=== PATIENT | female | born 1945 | race Caucasian/White ===

== ENCOUNTER 2017-02-13 22:01 | Emergency (ER) | payer OTHER ==
--- NOTE | 2017-02-13 22:37 | ED CARDIAC/CP/PALPITATIONS ---
History of Present Illness General Chief Complaint: Dyspnea (COPD, CHF, Other) Stated Complaint: PT IS HAVING HEART PALPITATIONS Source: patient, family Exam Limitations: no limitations Vital Signs & Intake/Output Vital Signs & Intake/Output Vital Signs Date Time Temp Pulse Resp B/P B/P Pulse O2 O2 Flow FiO2 Mean Ox Delivery Rate 02/13 2359 98.1 68 20 140/87 98 Nasal 2.0L Cannula 02/13 2236 84 20 152/98 100 Nasal 2.0L Cannula Allergies Coded Allergies: MDX - Diphenhydramine (From BENADRYL ALLERGY) (HEART POUNDS 01/05/12) Triage Nurses Notes Reviewed? yes HPI: This is a 71-year-old female with history of coronary disease status post coronary stenting 2007 presents to the ER with chief complaint of sudden, abrupt onset of palpitations that started at 9:00 while the patient was watching TV. She states that she felt her heart pounding. Denies any chest pain. Denies any shortness of breath. No history of similar symptoms. Patient denies any change in her medications. No known history of atrial fibrillation or atrial flutter. She is a nonsmoker nondrinker. Patient presents to the ER with a heart rate in the 160s, irregular, A. fib. (TAYLA ESPINOZA MD) Past History Travel History Traveled to [place] past 21 day No Medical History Any Pertinent Medical History? see below for history Cardiovascular: CAD, CARDIAC STENT Surgical History Surgical History: non-contributory Psychosocial History What is your primary language Cape Verdean Tobacco Use: Never used ETOH Use: denies use Family History Hx Contributory? No (TAYLA ESPINOZA MD) Review of Systems Review of Systems Constitutional: Denies: chills, fever. EENTM: Reports: no symptoms. Respiratory: Denies: cough, short of breath. Cardiovascular: Reports: palpitations. Denies: chest pain, peripheral edema, syncope. GI: Reports: no symptoms. Genitourinary: Reports: no symptoms. Musculoskeletal: Reports: no symptoms. Skin: Reports: no symptoms. Neurological/Psychological: Reports: anxiety. Hematologic/Endocrine: Denies: bruising, bleeding, polyuria, polydipsia. Immunologic/Allergic: Reports: no symptoms. All Other Systems: Reviewed and Negative (TAYLA ESPINOZA MD) Physical Exam Physical Exam General Appearance: alert, awake, anxious, mild distress, thin Head: atraumatic, normal appearance Eyes: Bilateral: normal appearance, PERRL, EOMI. Ears, Nose, Throat: normal pharynx, normal ENT inspection, hearing grossly normal Neck: normal inspection, supple, full range of motion Respiratory: normal breath sounds, chest non-tender, no respiratory distress Cardiovascular: tachycardia, irregularly irregular Peripheral Pulses: 2+ radial (R), 2+ radial (L) Gastrointestinal: normal bowel sounds, soft, non-tender Neurologic/Psych: no motor/sensory deficits, awake, alert, oriented x 3 Skin: intact, normal color, warm/dry Core Measures ACS in differential dx? Yes ASA ordered for poss ACS? PENDING EVALUATION Severe Sepsis Present: No Septic Shock Present: No (OLGA GALICIA,TAYLA) Progress Differential Diagnosis: pulmonary embolism, unstable angina, a. FIB, A FLUTTER Plan of Care: Orders Procedure Date/time Status EKG 02/14 2236 Active Telemetry/Fountain Helper 02/13 2235 Active THYROID STIMULATING HORMONE 02/13 2235 Complete TROPONIN LEVEL 02/13 2235 Complete PARTIAL THROMBOPLASTIN TIME 02/13 2235 Complete PROTHROMBIN TIME 02/13 2235 Complete MAGNESIUM 02/13 2235 Complete FREE T4 02/13 2235 Complete COMPREHENSIVE METABOLIC PANEL 02/13 2235 Complete CBC WITHOUT DIFFERENTIAL 02/13 2235 Complete B-TYPE NATRIURETIC PEP (BNP) 02/13 2235 Complete EKG 02/14 2204 Active Laboratory Tests 02/13/17 2249: Anion Gap 14, Estimated GFR > 60, BUN/Creatinine Ratio 21.3, Glucose 108 H, Calcium 10.0, Magnesium 2.4 H, Total Bilirubin 0.7, AST 29, ALT 43, Alkaline Phosphatase 76, Troponin I < 0.01, Ham-E-Folecqrntcn Pept 241 H, Total Protein 7.8, Albumin 4.9, Globulin 2.9, Albumin/Globulin Ratio 1.7, TSH 7.050 H, Free T4 0.92, PT 10.5, INR 1.00, APTT 32, CBC w Diff NO MAN DIFF REQ, RBC 4.94, MCV 89.5, MCH 30.1, RDW 13.1, MPV 7.1 L, Gran % 53.8, Lymphocytes % 37.2, Monocytes % 5.9, Eosinophils % 2.2, Basophils % 0.9, Absolute Granulocytes 3.9, Absolute Lymphocytes 2.7, Absolute Monocytes 0.4, Absolute Eosinophils 0.2, Absolute Basophils 0.1, PUBS MCHC 33.6 Patient spontaneously converted to normal sinus rhythm upon initial evaluation. Labs, chest x-ray. (OLGA GALICIA,TAYLA) Diagnostic Imaging: Viewed by Me: Radiology Read. Discussed w/RAD: Radiology Read. CXR Impression: PATIENT: FLOR YOO PRESENT AGE: 71 PATIENT ACCOUNT NO: [id number] : 47 LOCATION: [facility] ORDERING PHYSICIAN: TAYLA ESPINOZA MD SERVICE DATE: 02/13/17 EXAM TYPE: RAD - XRY-PORTABLE CHEST XRAY EXAMINATION: XR PORTABLE CHEST CLINICAL INFORMATION: Dyspnea. COMPARISON: Chest x-ray 11/05/2013 TECHNIQUE: Portable frontal AP view of the chest was obtained. 10:45 PM FINDINGS: Hyperinflation of lungs. Lungs are clear. No pulmonary vascular congestion or pleural effusion. No pneumothorax. Cardiac and mediastinal contours are normal IMPRESSION: No acute abnormality the chest. DICTATED BY: SONG HANNAH MD DATE/TIME DICTATED:02/13/172311 SUPPORT WORKER :ADRIANNA DATE/TIME TRANSCRIBED:02/13/172311 CONFIDENTIAL, DO NOT COPY WITHOUT APPROPRIATE AUTHORIZATION. <Electronically signed in Other Vendor System> SIGNED BY: SONG HANNAH MD 02/13/172316 Initial ED EKG: AFIB (RVR) Rhythm Strip: normal sinus rhythm, atrial fibrillation Hand-Off Endorsed To: JAMES JASON MD Endorsed Time: 2320 Pending: labs (TAYLA ESPINOZA MD) Comments: H and has remained in sinus rhythm since they feel appropriate. Patient denies any chest pain or shortness of breath today. Patient will call Dr. Coon in the morning. At this point the patient is stable for discharge. (JAMES JASON MD) Departure Departure Condition: Stable Clinical Impression Primary Impression: Rapid atrial fibrillation Departure Forms: Customer Survey General Discharge Information (TAYLA ESPINOZA MD) Departure Disposition: HOME OR SELF CARE Referrals: BARBARA GALICIA,RAMONA BARDALES MD,JUAN Ward (PCP/Family) Additional Instructions: Follow-up with that decision. Return if symptoms return or for any concerns. (JAMES JASON MD) Critical Care Note Critical Care Note Critical Care Time: non-applicable (OLGA GALICIA,TAYLA)
[2017-02-13 22:58] LABS: ABSOLUTE BASOPHIL COUNT 0.1 /CUMM (0.0-0.2); ABSOLUTE EOSINOPHIL COUNT 0.2 /CUMM (0.0-0.7); ABSOLUTE GRANULOCYTE CT 3.9 /CUMM (1.4-6.5); ABSOLUTE LYMPH COUNT 2.7 /CUMM (1.2-3.4); ABSOLUTE MONOCYTE COUNT 0.4 /CUMM (0.10-0.60); BASOPHIL % 0.9 % (0.0-2.0); EOSINOPHIL % 2.2 % (0-5); GRANULOCYTE % 53.8 % (42.2-75.2); HEMATOCRIT 44.2 % (37-47); MEAN CORPUSCULAR HGB 30.1 PG (27.0-31.0); MEAN CORPUSCULAR HGB CONC 33.6 G/DL (33.0-37.0); MEAN CORPUSCULAR VOLUME 89.5 FL (81.0-99.0); MEAN PLATELET VOLUME 7.1 FL (7.4-10.4); PLATELET COUNT 251 /CUMM (130-400); RBC DISTRIBUTION WIDTH 13.1 % (11.5-14.5); RED BLOOD CELL CT 4.94 /CUMM (4.20-5.40); WHITE BLOOD CELL COUNT 7.3 /CUMM (4.8-10.8)
[2017-02-13 23:06] LABS: PT 10.5 SEC (9.4-12.5); PTT 32 SEC (25-37)
--- NOTE | 2017-02-13 23:17 | RADIOLOGY REPORT ---
EXAMINATION: XR PORTABLE CHEST CLINICAL INFORMATION: Dyspnea. COMPARISON: Chest x-ray 11/05/2013 TECHNIQUE: Portable frontal AP view of the chest was obtained. 10:45 PM FINDINGS: Hyperinflation of lungs. Lungs are clear. No pulmonary vascular congestion or pleural effusion. No pneumothorax. Cardiac and mediastinal contours are normal IMPRESSION: No acute abnormality the chest.
[2017-02-13 23:59] VITALS: BP 140/87
[2017-02-14] MEDS ORDERED: ASPIRIN EC81 M1 PO (21:24)
[2017-02-14] MEDS ORDERED: MELOXICAM7.5 M1 PO (21:24)
[2017-02-14] MEDS ORDERED: ATORVASTATIN CA10 M1 PO (21:25)
[2017-02-15] MEDS ORDERED: TOPROL XL25 M1 PO (15:16)
[2017-02-15] MEDS ORDERED: ELIQUIS5 M1 PO (15:16)
== END 2017-02-14 00:33 ==
LOC: ERH 22:01
PROVIDERS: Emergency Medicine
DX: I48.91 Unspecified atrial fibrillation (principal)
CPT/HCPCS: 93005; 93010

== ENCOUNTER 2017-02-14 20:31 | Observation (INO) | payer OTHER ==
[~2017-02-14] VITALS: Ht 165.1 cm; Wt 63.5 kg
--- NOTE | 2017-02-14 20:53 | NUR ---
PT TO TRIAGE WITH C/0 INTERMITTENT PALPITATIONS AND WEAKNESSxFEW DAYS. PT WAS SEEN HERE IN ER FOR SAME YESTERDAY AND WAS UNABLE TO FOLLOW UP WITH HER PCP TODAY. PT DENIES CHEST PAIN,DENIES SOB, DENIES ABD PAIN. VSS. HX OF AFIB,CAD.
--- NOTE | 2017-02-14 21:17 | NUR ---
PT IN ROOM 6
[2017-02-14] MEDS ORDERED: MELOXICAM7.5 M1 PO (21:24)
[2017-02-14] MEDS ORDERED: ASPIRIN EC81 M1 PO (21:24)
[2017-02-14] MEDS ORDERED: ATORVASTATIN CA10 M1 PO (21:25)
--- NOTE | 2017-02-14 21:33 | NUR ---
PT STATES SHE HAD ONE EPISODE OF PALPITATIONS TODAY-WHEN SHE WAS CLIMBING 13 STEPS INTO HOME. DENIES CP, SOB OR DIZZINESS WITH PALPITATIONS BUT THE SENSATION OF THE PALPITATIONS WAS UNCOMFORTABLE ENOUGH THAT SHE WANTED TO RETURN TO ED. PT ON MONITOR IN NSR WITHOUT ECTOPY. IN NO DISTRESS, PAIN OR RESP DISTRESS AT PERSENT
--- NOTE | 2017-02-14 21:34 | NUR ---
RYAN PATEL PA IN TO SEE PT
--- NOTE | 2017-02-14 22:00 | NUR ---
LAB DRAWN AND IV STARTED BY KLEVER AYALA
[2017-02-14 22:13] LABS: ABSOLUTE BASOPHIL COUNT 0.1 /CUMM (0.0-0.2); ABSOLUTE EOSINOPHIL COUNT 0.1 /CUMM (0.0-0.7); ABSOLUTE GRANULOCYTE CT 4.1 /CUMM (1.4-6.5); ABSOLUTE LYMPH COUNT 2.2 /CUMM (1.2-3.4); ABSOLUTE MONOCYTE COUNT 0.5 /CUMM (0.10-0.60); BASOPHIL % 1.1 % (0.0-2.0); EOSINOPHIL % 1.8 % (0-5); GRANULOCYTE % 58.6 % (42.2-75.2); HEMATOCRIT 41.3 % (37-47); MEAN CORPUSCULAR HGB 29.9 PG (27.0-31.0); MEAN CORPUSCULAR HGB CONC 33.3 G/DL (33.0-37.0); MEAN CORPUSCULAR VOLUME 89.8 FL (81.0-99.0); MEAN PLATELET VOLUME 7.1 FL (7.4-10.4); PLATELET COUNT 209 /CUMM (130-400); RBC DISTRIBUTION WIDTH 13.4 % (11.5-14.5)
--- NOTE | 2017-02-14 22:16 | ED CARDIAC/CP/PALPITATIONS ---
History of Present Illness General Chief Complaint: General Adult Stated Complaint: PT STOMACH PAIN ,AND HEART PALPITATION Source: patient, old records Exam Limitations: no limitations Vital Signs & Intake/Output Vital Signs & Intake/Output Vital Signs Date Time Temp Pulse Resp B/P B/P Pulse O2 O2 Flow FiO2 Mean Ox Delivery Rate 02/14 2247 96.6 61 18 150/90 97 Room Air 02/144 Room Air 02/14 2049 98.3 65 18 153/89 100 Room Air ED Intake and Output 02/15 0000 02/14 1200 Intake Total Output Total Balance Patient 140 lb Weight Weight Reported by Patient Measurement Method Allergies Coded Allergies: diphenhydramine (HEART POUNDS 02/14/17) Reconcile Medications Aspirin (Ecotrin*) 81 MG TABLET.DR 1 TAB PO DAILY HEART/BLOOD (Reported) Atorvastatin Calcium 10 MG TABLET 1 TAB PO DAILY CHOLESTEROL (Reported) Meloxicam 7.5 MG TABLET 1 TAB PO DAILY PAIN/INFLAMMATION (Reported) Triage Note: PT TO TRIAGE WITH C/0 INTERMITTENT PALPITATIONS AND WEAKNESSxFEW DAYS. PT WAS SEEN HERE IN ER FOR SAME YESTERDAY AND WAS UNABLE TO FOLLOW UP WITH HER PCP TODAY. PT DENIES CHEST PAIN,DENIES SOB, DENIES ABD PAIN. VSS. HX OF AFIB,CAD. Triage Nurses Notes Reviewed? yes Onset: Abrupt Duration: day(s): (2), constant, getting worse Timing: recent history Quality/Severity: moderate, severe HPI: 71-year-old female comes into emergency room with complaints of palpitations and increased weakness. Patient was seen here yesterday and diagnosed with intermittent A. fib. She was sent home follow-up. She reports that since yesterday she began getting these sensations in her chest that are worse with exertion. Patient does not describe it as pain. Denies any shortness of breath diaphoresis vomiting. Denies any fever or chills. Patient reports that there weakness is getting progressively worse. She feels very generally weak and tired. Patient started to get the symptoms again today in her chest. History of coronary disease with previous stents many years ago. Patient does not have a current senior backup administrator. She denies any chest pain or any pain anywhere on her body. (RYAN WARD) Past History Travel History Traveled to [place] past 21 day No Medical History Any Pertinent Medical History? see below for history Cardiovascular: AFIB, CAD Surgical History Surgical History: non-contributory Psychosocial History What is your primary language Taiwanese Tobacco Use: Quit >30 days ago Family History Hx Contributory? No (RYAN WARD) Review of Systems Review of Systems Constitutional: Reports: see HPI. EENTM: Reports: no symptoms. Respiratory: Reports: no symptoms. Cardiovascular: Reports: see HPI. GI: Reports: no symptoms. Genitourinary: Reports: no symptoms. Musculoskeletal: Reports: no symptoms. Skin: Reports: no symptoms. Neurological/Psychological: Reports: no symptoms. Hematologic/Endocrine: Reports: no symptoms. Immunologic/Allergic: Reports: no symptoms. All Other Systems: Reviewed and Negative (RYAN WARD) Physical Exam Physical Exam General Appearance: well developed/nourished, alert, awake Head: atraumatic, normal appearance Eyes: Bilateral: normal appearance. Ears, Nose, Throat: normal ENT inspection, hearing grossly normal Neck: normal inspection Respiratory: normal breath sounds, no respiratory distress Cardiovascular: regular rate/rhythm Gastrointestinal: soft, non-tender Back: normal inspection Extremities: normal range of motion, no edema Neurologic/Psych: awake, alert Skin: intact, normal color Core Measures ACS in differential dx? No Severe Sepsis Present: No Septic Shock Present: No (RYAN WARD) Progress Differential Diagnosis: AMI, aortic dissection, atrial fibrillation, cholecystitis, CHF/pulm edema, hyperkalemia, hypovolemia, hyperthyroid, pneumonia, pneumothorax, pulmonary embolism, PVCs/PACs, unstable angina, V-fib/V -Tach, WPW syndrome Plan of Care: Orders Procedure Date/time Status Regular Diet 02/15 B Active Patient Data 02/14 2335 Active OXYGEN SETUP (GEN) 02/14 2317 Active Saline Lock 02/[address] in observation 02/14 2317 Active Vital Signs 02/14 2317 Active Activity/Ambulation 02/14 2317 Active Code Status 02/14 2317 Active Telemetry/Photonics Engineering Technologist 02/14 2141 Active TROPONIN LEVEL 02/14 2141 Complete MAGNESIUM 02/14 2141 Complete COMPREHENSIVE METABOLIC PANEL 02/14 2141 Complete CBC WITHOUT DIFFERENTIAL 02/14 2141 Complete Intake & Output 02/14 2134 Active EKG 02/14 2035 Active Laboratory Tests 02/14/172153: Anion Gap 14, Estimated GFR > 60, BUN/Creatinine Ratio 27.1 H, Glucose 89, Calcium 9.5, Magnesium 2.2, Total Bilirubin 0.8, AST 24, ALT 34, Alkaline Phosphatase 63, Troponin I < 0.01, Total Protein 7.1, Albumin 4.5, Globulin 2.6, Albumin/Globulin Ratio 1.7, CBC w Diff NO MAN DIFF REQ, RBC 4.60, MCV 89.8, MCH 29.9, RDW 13.4, MPV 7.1 L, Gran % 58.6, Lymphocytes % 32.0, Monocytes % 6.5, Eosinophils % 1.8, Basophils % 1.1, Absolute Granulocytes 4.1, Absolute Lymphocytes 2.2, Absolute Monocytes 0.5, Absolute Eosinophils 0.1, Absolute Basophils 0.1, PUBS MCHC 33.3 Initial ED EKG: normal intervals, normal p-waves, normal sinus rhythm, nonspecific ST T wave chg Prior EKG: changed (RYAN WARD) Departure Departure Disposition: STILL A PATIENT Condition: Stable Clinical Impression Primary Impression: Paroxysmal a-fib Secondary Impressions: Heart palpitations Referrals: JEFFY GALICIA,JUAN Ward (PCP/Family) Departure Forms: Customer Survey General Discharge Information Observation Note Spoke With: RADHA EAGLE MD Physician Advisor Notified: FOUZIA CORTES DO Place Patient In: Non-ED OBS Care Area Rationale for Observation: My rational for observation is as follows . Patient is going to be started on oral anticoagulants. Patient will be monitored on cardiac telemetry. Possible rate controlling medication. Patient keeps having runs of A. fib on the monitor and then spontaneously converts back to normal sinus rhythm. She has some very mild nonspecific ST changes seen in V4 V5 V6 compared to yesterday's EKG. I spoke with senior backup administrator Dr. Lino and he feels that an observation is appropriate for the patient. Serial troponins and blood work. Possibly echocardiogram tomorrow. At this time I do not feel that the patient requires more than 48 hour stay and observation is appropriate. (RYAN WARD) PA/BELT TURNER Co-Sign Statement Statement: ED Attending supervision documentation- x I saw and evaluated the patient. I have also reviewed all the pertinent lab results and diagnostic results. I agree with the findings and the plan of care as documented in the PA's/BELT TURNER's documentation. [] I have reviewed the ED Record and agree with the PA's/BELT TURNER's documentation. [] Additions or exceptions (if any) to the PAs/BELT TURNER's note and plan are summarized below: [] (JEVON GALICIA,JAMES) Critical Care Note Critical Care Note Critical Care Time: non-applicable (AMANDA BRADFORD,RYAN)
--- NOTE | 2017-02-14 22:46 | NUR ---
PT RESTING QUIETLY. REMAINS IN NSR
--- NOTE | 2017-02-15 | NUR ---
CM = RUNS OF AFIB THEN TO NSR.
--- NOTE | 2017-02-15 00:18 | NUR ---
PT GOING TO ROOM 183
--- NOTE | 2017-02-15 00:24 | NUR ---
REPORT CALLED TO RN
--- NOTE | 2017-02-15 02:20 | History & Physical ---
MAXIMO MICHAUD MD 02/15/17 0220: General Information and HPI MD Statement: I have seen and personally examined MARNIE YOO and documented this H&P. The patient is a 71 year old F who presented with a patient stated chief complaint of palpitations and weakness. Source of Information: patient, family Exam Limitations: no limitations History of Present Illness: Ms. Yoo is a pleasant 71 year old female with PMH CAD s/p stenting in 2007 and intermittent atrial fibrillation diagnosed yesterday in the [facility] ED which spontaneously reverted to normal sinus rhythm. History is obtained both from Marnie and her son who is at bedside during the interview. Yesterday, Marnie visited the emergency room due to palpitations and was noted to be in atrial fibrillation, however she soon converted to normal sinus rhythm and was instructed to follow up with a medical records coordinator in Dr. Giuliano Mcwilliams's group upon discharge. However, after returning home the patinet continued to experience weakness, lethargy and palpitations. This morning Marnie noted that her heart was pounding. Associated symptoms include chronic constipation for which she takes a laxative and patient occasionally experiencing imbalance when she ambulates. Of note, about three months ago Marnie was at [facility] due to symptoms of nausea, vomiting, back pain and diaphoresis. They did an echocardiogram at that time as well as lab studies and the patient reports this was all normal. Marnie lives at home and performs all of her ADLs and IADLs. She is a previous smoker but denies current tobacco, alcohol or illicit drug use. 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 Her medical records coordinator is Dr. Mcwilliams. Patient reports her last treadmill stress test was 1.5 years ago and was found to be normal. Past surgical history is significant for stent placement in 2007 and hysterectomy. Allergies/Medications Allergies: Coded Allergies: diphenhydramine (HEART POUNDS 02/14/17) Home Med list Aspirin (Ecotrin*) 81 MG TABLET. 1 TAB PO DAILY HEART/BLOOD (Reported) Atorvastatin Calcium 10 MG TABLET 1 TAB PO DAILY CHOLESTEROL (Reported) Meloxicam 7.5 MG TABLET 1 TAB PO DAILY PAIN/INFLAMMATION (Reported) Compliance With Home Meds: GOOD Past History Travel History Traveled to [place] past 21 day No Medical History Cardiovascular: AFIB, CAD Surgical History Surgical History: hysterectomy, CAD s/p stenting Past Family/Social History Psychosocial History Where do you live? Home Services at Home: None Primary Language: Djiboutian Smoking Status: Former Smoker ETOH Use: denies use Illicit Drug Use: denies illicit drug use Functional Ability ADLs Independent: dressing, eating, toileting, bathing. Ambulation: independent IADLs Independent: shopping, housework, finances, food prep, telephone, transportation , medication admin. Employment History Employment Retired Review of Systems Review of Systems Constitutional: Reports: malaise, weakness. Denies: chills, fever. EENTM: Denies: visual changes, hearing changes, nasal congestion. Cardiovascular: Reports: palpitations. Denies: chest pain, syncope. Respiratory: Denies: cough, short of breath. GI: Reports: constipation. Denies: abdominal pain, melena, nausea, vomiting. Genitourinary: Denies: dysuria, hematuria. Musculoskeletal: Denies: back pain. Skin: Denies: rash. Neurological/Psychological: Denies: confusion, headache, numbness. Hematologic/Endocrine: Denies: bruising, bleeding. Immunologic/Allergic: Denies: splenectomy. All Other Systems: Reviewed and Negative Exam & Diagnostic Data Last 24 Hrs of Vital Signs/I&O Vital Signs Date Time Temp Pulse Resp B/P B/P Pulse O2 O2 Flow FiO2 Mean Ox Delivery Rate 02/15 0230 97.9 63 18 158/80 98 Room Air 02/14 2247 96.6 61 18 150/90 97 Room Air 02/14 2134 Room Air 02/14 2049 98.3 65 18 153/89 100 Room Air Intake & Output 02/15 0800 02/15 0000 02/14 1600 Intake Total Output Total Balance Patient 140 lb 140 lb Weight Weight Reported by Patient Measurement Method Physical Exam General Appearance Alert, Oriented X3, Cooperative, No Acute Distress Skin No Rashes, No Significant Lesion Skin Temp/Moisture Exam: Warm/Dry HEENT Atraumatic, PERRLA, EOMI, Mucous Membr. moist/pink Neck Supple, +2 Carotid Pulse wo Bruit Lymphatic Cervical nl Cardiovascular Regular Rate, Normal S1, Normal S2, No Murmurs Lungs Clear to Auscultation, Normal Air Movement Abdomen Normal Bowel Sounds, Soft, No Tenderness, No Masses Neurological Normal Gait, Normal Speech, Strength at 5/5 X4 Ext, Normal Tone Extremities No Clubbing, No Cyanosis, No Edema Vascular Pulses Symmetrical Last 24 Hrs of Labs/Maciej: Laboratory Tests 02/14/17 2154: Anion Gap 14, Estimated GFR > 60, BUN/Creatinine Ratio 27.1 H, Glucose 89, Calcium 9.5, Magnesium 2.2, Total Bilirubin 0.8, AST 24, ALT 34, Alkaline Phosphatase 63, Troponin I < 0.01, Total Protein 7.1, Albumin 4.5, Globulin 2.6, Albumin/Globulin Ratio 1.7, TSH &T3 &Free T4 Intrp 4.530 H, CBC w Diff NO MAN DIFF REQ, RBC 4.60, MCV 89.8, MCH 29.9, RDW 13.4, MPV 7.1 L, Gran % 58.6, Lymphocytes % 32.0, Monocytes % 6.5, Eosinophils % 1.8, Basophils % 1.1, Absolute Granulocytes 4.1, Absolute Lymphocytes 2.2, Absolute Monocytes 0.5, Absolute Eosinophils 0.1, Absolute Basophils 0.1, PUBS MCHC 33.3 Diagnostic Data EKG Results NSR, HR 68 bpm, QTC 451, T wave inversion in lead III (old) and aVF (new) Assessment/Plan Assessment: Marnie Yoo is a 71 year old female with PMH CAD s/p stenting in 2007 and intermittent atrial fibrillation diagnosed yesterday who presents with chief complaint of palpitations and lethargy. As per patient, she was at [facility] yesterday due to palpitations and was diagnosed with atrial fibrillation which quickly converted to normal sinus rhythm; she was discharged with follow up at the medical records coordinator's. However, today Marnie noted pounding heart and severe tiredness, prompting her to return to the ED. In the ED: Vital signs showed T 98.3, HR 65, RR 18, BP 153/89 and O2 saturation of 100% on room air. Labs were significant for unremarkable CBC and unremarkable BEP (BUN 19). Troponin <0.01. TSH reflex high to 4.53. EKG was obtained and showed NSR HR 68, QTC 451, new T wave inversion in aVF. Patient is admitted as OBSERVATION to the telemetry floor and the following is the management: 1. Intermittent atrial fibrillation * Continuous telemetry monitoring * Patient currently rate controlled, no need for rate control medications at this point in time * Cardio consult to be placed in AM * Patient started on eliquis in ED, continue eliquis 5 mg PO BID * ASA 81 mg PO daily * Atorvastatin 10 mg PO daily * Follow up FT4, T3, TSH as reflex was high * Trop/EKG x 3 to rule out ACS * Follow up echocardiogram FULL CODE DVTP: Eliquis Heart Healthy Diet Mild pain pathway As Ranked By This Provider Problem List: 1. Paroxysmal a-fib 2. Heart palpitations Core Measures/Miscellaneous Acute Coronary Syndrome ACS Diagnosis: No Cerebrovascular Accident CVA/TIA Diagnosis: No Congestive Heart Failure CHF Diagnosis: No Venous Thromboembolism VTE Risk Factors: Acute medical illness, Age > 40 [facility] prophylaxis d/t: No contraindications No VTE Pharm Prophylaxis d/t: No contraindications VTE Diagnosis: No VTE Type: NONE VTE Confirmed by (Test): NONE Severe Sepsis Severe Sepsis Present: No Septic Shock Septic Shock Present: No Miscellaneous Documentation Attending Case Discussed With: RADHA EAGLE MD Primary Care Physician: JUAN BARDALES MD Patient sees these Specialists Dr. Mcwilliams, cardiology Level of Patient Care: [facility]236: Resident Review Statement Resident Statement: examined this patient, discussed with audit practice intern, agreed with audit practice intern Other Findings: Problem List: * ? Paroxysmal Atrial Fibrillation witj [id number] of 3 * CAD s/p stenting in 2007. Last Stress test 1 1/2 yr ago, WNL * Hyperlipidemia Plan: * Admit to telemetry. * Rate controlled. Patient was given 5 mg of Eliquis in the ED for anticoagulation. To be continued for now, pending cardiac evaluation. * Continue other home medications. * ECHO, check TSH * Pain Pathway: Tylenol PRN * DVT PPx: Eliquis 5 mg BID * Code Status: Full Code RADHA EAGLE 02/15/17 0629: Attending MD Review Statement Attending Statement Attending MD Statement: examined this patient, discuss w/resident/PA/INTERIOR ASSEMBLIES DEVELOPER PROVER, agreed w/resident/PA/INTERIOR ASSEMBLIES DEVELOPER PROVER, reviewed EMR data (avail), reviewed images, amended to note Attending Assessment/Plan: CC: Palpitations PMH: CAD S/P stent 2007 Patient was in ER yesterday for palpitations, documentation mentions that she was in 160s, irregular rhythm A. fib, spontaneously converted to sinus, was discharged home to be followed up with medical records coordinator but patient had an episode of pounding again today so she came back to ER. No chest pain, chest tightness, leg swelling, dizziness, passing out episodes. Vitals: Unremarkable On exam: A O 3, cooperative, no acute distress, neck supple, JVD normal, no lymphadenopathy, mucosa moist, no focal neurological deficit, no dependent edema , no obvious skin rashes or inflammation CVS: S1-S2, RRR. RS: Clear to auscultate bilaterally. Abdomen: Soft, NT, ND, bowel sounds present. Labs: CBC, BMP, LFT, troponin unremarkable, TSH 4.5 A and P According to ER notes, patient appears to be in paroxysmal A. fib, but there is no documented EKG or rhythm strip. Dr. Lino was called from ER who suggested to start Eliquis, suggested observation. + ? Paroxysmal A. fib - Place in observation in telemetry - 1 more set of troponin, EKG in a.m. - Obtain EKG if telemetry shows A. fib - Cardiology consult in a.m. - 2-D Echocardiogram - Continue Eliquis as recommended but patient suggests that she cannot afford costly medications.
[2017-02-15 02:30] VITALS: BP 158/80
[2017-02-15 07:55] LABS: ABSOLUTE BASOPHIL COUNT 0.1 /CUMM (0.0-0.2); ABSOLUTE EOSINOPHIL COUNT 0.2 /CUMM (0.0-0.7); ABSOLUTE GRANULOCYTE CT 3.2 /CUMM (1.4-6.5); ABSOLUTE MONOCYTE COUNT 0.4 /CUMM (0.10-0.60); BASOPHIL % 0.9 % (0.0-2.0); EOSINOPHIL % 3.1 % (0-5); HEMATOCRIT 39.3 % (37-47); MEAN CORPUSCULAR HGB 30.3 PG (27.0-31.0); MEAN CORPUSCULAR HGB CONC 33.7 G/DL (33.0-37.0); MEAN CORPUSCULAR VOLUME 89.9 FL (81.0-99.0); MEAN PLATELET VOLUME 7.3 FL (7.4-10.4); PLATELET COUNT 211 /CUMM (130-400); RBC DISTRIBUTION WIDTH 13.1 % (11.5-14.5); RED BLOOD CELL CT 4.37 /CUMM (4.20-5.40); WHITE BLOOD CELL COUNT 5.8 /CUMM (4.8-10.8)
[2017-02-15 08:23] VITALS: BP 120/70
--- NOTE | 2017-02-15 12:15 | Cons- Cardiology ---
General Information and HPI Consulting Request Date of Consult: 02/15/17 Requested By: CHANTAL ZHANG MD Reason for Consult: Atrial fibrillation Source of Information: patient History of Present Illness: This is a pleasant 71-year-old female with a past medical history of coronary artery disease including a prior myocardial infarction with PCI to the mid RCA in 2007, mild mitral valve prolapse, and hyperlipidemia who presents to [facility] with a chief complaint of moderate intensity intermittent palpitations. The patient presented to the emergency room yesterday with palpitations and was found to be in atrial fibrillation but spontaneously converted to sinus rhythm with resolution of her symptoms and was discharged home. However she had recurrent episode of palpitations at home and came back to the hospital. The episode was not associated with any chest pain or dyspnea but she did notice associated weakness. On my interview with the patient this morning she feels back to baseline. Allergies/Medications Allergies: Coded Allergies: diphenhydramine (HEART POUNDS 02/14/17) Home Med List: Aspirin (Ecotrin*) 81 MG TABLET.DR 1 TAB PO DAILY HEART/BLOOD (Reported) Atorvastatin Calcium 10 MG TABLET 1 TAB PO DAILY CHOLESTEROL (Reported) Meloxicam 7.5 MG TABLET 1 TAB PO DAILY PAIN/INFLAMMATION (Reported) Current Medications: Current Medications Sig/Meena Start time Last Medication Dose Route Stop Time Status Admin Acetaminophen 650 MG Q6P PRN 02/15 0145 AC PO Apixaban 5 MG BID 02/15 1000 AC 02/15 PO 1153 Apixaban 5 MG ONCE ONE 02/15 0015 DC 02/15 PO 02/15 0016 0029 Aspirin Buffered 81 MG DAILY 02/15 1000 AC 02/15 PO 1153 Atorvastatin Calcium 10 MG DAILY 02/15 1000 AC 02/15 PO 1153 Melatonin 3 MG ONCE ONE 02/15 0200 DC / PO 02/15 0201 0215 Review of Systems Review of Systems: Review of systems as per HPI. The remainder of a 10 point review of systems was reviewed and was otherwise negative. Past History Travel History Traveled to [place] past 21 day No Medical History Cardiovascular: AFIB, CAD Surgical History Surgical History: hysterectomy, CAD s/p stenting Psychosocial History Where Do You Live? Home Services at Home: None Primary Language: Croatian Smoking Status: Former Smoker ETOH Use: denies use Illicit Drug Use: denies illicit drug use Functional Ability ADLs Independent: dressing, eating, toileting, bathing. Ambulation: independent IADLs Independent: shopping, housework, finances, food prep, telephone, transportation , medication admin. Employment History Employment: Retired Exam & Diagnostic Data Vital Signs and I&O Vital Signs Date Time Temp Pulse Resp B/P B/P Pulse O2 O2 Flow FiO2 Mean Ox Delivery Rate 02/15 823 98.2 65 14 120/70 97 Room Air 02/15 0230 97.9 63 18 158/80 98 Room Air 02/14 2247 96.6 61 18 150/90 97 Room Air 02/14 2134 Room Air 02/14 2049 98.3 65 18 153/89 100 Room Air Intake & Output 02/15 0802/15 0000 02/14 0802/14 0000 Intake Total Output Total Balance Patient 140 lb 140 lb Weight Weight Reported by Patient Measurement Method Physical Exam: General: no apparent distress. Alert. Eyes: No obvious scleral icterus. HEENT: No jugular venous distention or abnormal jugular venous pulsations. Cardiovascular: Normal intensity S1/S2. PMI not grossly displaced. Regular. Respiratory: Lungs clear to auscultation bilaterally. Abdomen: Soft, nontender with no guarding or rebound tenderness. Musculoskeletal: No clubbing or cyanosis noted Skin: No obvious rashes or ulcerations. Neurologic: No gross focal deficits noted. Lymph: No gross lymphadenopathy. Labs/Maciej Results: Laboratory Tests 02/15 621 Chemistry Sodium (137 - 145 mmol/L) 140 Potassium (3.5 - 5.1 mmol/L) 3.8 Chloride (98 - 107 mmol/L) 107 Carbon Dioxide (22 - 30 mmol/L) 24 Anion Gap (5 - 16) 9 BUN (7 - 17 mg/dL) 18 H Creatinine (0.5 - 1.0 mg/dL) 0.7 Estimated GFR (>60 ml/min) > 60 BUN/Creatinine Ratio (7 - 25 %) 25.7 H Troponin I (< 0.11 ng/ml) < 0.01 TSH (0.270 - 4.200 uIU/mL) 5.120 H Free T4 (0.78 - 2.44 ng/dL) 1.01 Total T3 (0.97 - 1.69 ng/mL) 1.13 Hematology CBC w Diff NO MAN DIFF REQ WBC (4.8 - 10.8 /CUMM) 5.8 RBC (4.20 - 5.40 /CUMM) 4.37 Hgb (12.0 - 16.0 G/DL) 13.2 Hct (37 - 47 %) 39.3 MCV (81.0 - 99.0 FL) 89.9 MCH (27.0 - 31.0 PG) 30.3 RDW (11.5 - 14.5 %) 13.1 Plt Count (130 - 400 /CUMM) 211 MPV (7.4 - 10.4 FL) 7.3 L Gran % (42.2 - 75.2 %) 55.0 Lymphocytes % (20.5 - 51.1 %) 34.2 Monocytes % (1.7 - 9.3 %) 6.8 Eosinophils % (0 - 5 %) 3.1 Basophils % (0.0 - 2.0 %) 0.9 Absolute Granulocytes (1.4 - 6.5 /CUMM) 3.2 Absolute Lymphocytes (1.2 - 3.4 /CUMM) 2.0 Absolute Monocytes (0.10 - 0.60 /CUMM) 0.4 Absolute Eosinophils (0.0 - 0.7 /CUMM) 0.2 Absolute Basophils (0.0 - 0.2 /CUMM) 0.1 PUBS MCHC (33.0 - 37.0 G/DL) 33.7 02/14 2154 Chemistry Sodium (137 - 145 mmol/L) 137 Potassium (3.5 - 5.1 mmol/L) 3.6 Chloride (98 - 107 mmol/L) 101 Carbon Dioxide (22 - 30 mmol/L) 21 L Anion Gap (5 - 16) 14 BUN (7 - 17 mg/dL) 19 H Creatinine (0.5 - 1.0 mg/dL) 0.7 Estimated GFR (>60 ml/min) > 60 BUN/Creatinine Ratio (7 - 25 %) 27.1 H Glucose (65 - 99 mg/dL) 89 Calcium (8.4 - 10.2 mg/dL) 9.5 Magnesium (1.6 - 2.3 mg/dL) 2.2 Total Bilirubin (0.2 - 1.3 mg/dL) 0.8 AST (14 - 36 U/L) 24 ALT (9 - 52 U/L) 34 Alkaline Phosphatase (<127 U/L) 63 Troponin I (< 0.11 ng/ml) < 0.01 Total Protein (6.3 - 8.2 g/dL) 7.1 Albumin (3.5 - 5.0 g/dL) 4.5 Globulin (1.9 - 4.2 gm/dL) 2.6 Albumin/Globulin Ratio (1.1 - 2.2 %) 1.7 TSH &T3 &Free T4 Intrp (0.270 - 4.20 uIU/mL) 4.530 H Hematology CBC w Diff NO MAN DIFF REQ WBC (4.8 - 10.8 /CUMM) 7.0 RBC (4.20 - 5.40 /CUMM) 4.60 Hgb (12.0 - 16.0 G/DL) 13.8 Hct (37 - 47 %) 41.3 MCV (81.0 - 99.0 FL) 89.8 MCH (27.0 - 31.0 PG) 29.9 RDW (11.5 - 14.5 %) 13.4 Plt Count (130 - 400 /CUMM) 209 MPV (7.4 - 10.4 FL) 7.1 L Gran % (42.2 - 75.2 %) 58.6 Lymphocytes % (20.5 - 51.1 %) 32.0 Monocytes % (1.7 - 9.3 %) 6.5 Eosinophils % (0 - 5 %) 1.8 Basophils % (0.0 - 2.0 %) 1.1 Absolute Granulocytes (1.4 - 6.5 /CUMM) 4.1 Absolute Lymphocytes (1.2 - 3.4 /CUMM) 2.2 Absolute Monocytes (0.10 - 0.60 /CUMM) 0.5 Absolute Eosinophils (0.0 - 0.7 /CUMM) 0.1 Absolute Basophils (0.0 - 0.2 /CUMM) 0.1 PUBS MCHC (33.0 - 37.0 G/DL) 33.3 Diagnostic Data EKG Results Tracing was personally reviewed and shows sinus rhythm at 63 bpm with old anteroseptal myocardial infarction pattern and borderline left axis deviation CXR Results No pneumonia or pulmonary edema Other Results Telemetry tracings were personally reviewed and shows sinus rhythm with a 6 beat Atrial run Assessment/Plan Assessment/Plan 1. Reported a new onset paroxysmal atrial fibrillation now back in sinus rhythm 2. Palpitations 3. History of coronary artery disease with prior myocardial infarction and prior PCI to the RCA in 2007 4. History of mild mitral valve prolapse 5. History of hyperlipidemia Unfortunately the documented telemetry strips of atrial fibrillation are no longer available for review. Her symptoms are consistent with paroxysmal atrial fibrillation. I had an extensive discussion with the patient regarding the risks versus benefits of full anticoagulation and reviewed various options. After careful discussion and given her elevated CHADS-Vasc score she has elected to proceed with full anticoagulation and chooses twice a day Eliquis at this time. Recommend starting the patient on Toprol-XL 25 mg by mouth daily. Continue daily aspirin and statin given her prior myocardial infarction. A transthoracic echocardiogram has been ordered and is currently pending. If the echocardiogram is grossly normal she will likely be a candidate for discharge and should follow -up in our office within one week of discharge. Discontinue NSAIDs while on full AC. Hayden Jameson MD [facility] Consult Acknowledgment - Thank you for your consult request.
--- NOTE | 2017-02-15 12:38 | ECHOCARDIOGRAM REPORT ---
FLOR YOO Age: 71 : 1945 Gender: F Exam Date: 02/15/2017 09:15 Exam Location: [address] Ht (in): 65 Wt (lb): 140 BSA: 1.71 BP: 158 / 80 Ordering Physician: SERGIO BENSON MD Referring Physician: SERGIO BENSON MD Technologist: Alexey Harp [facility] Room Number: 183-1 Indications: AFIB/FLUTTER Rhythm: Technical Quality: FINDINGS Left Ventricle Normal global left ventricular size, wall thickness, systolic function with no obvious regional wall motion abnormalities. Left ventricular ejection fraction is estimated at > 55 %. Right Ventricle Normal right ventricular size and function. Right Atrium Normal right atrial size. Left Atrium Normal left atrial size. Mitral Valve Structurally normal mitral valve. Trace mitral regurgitation. No mitral stenosis. Aortic Valve Trileaflet aortic valve. No aortic stenosis. Trace aortic regurgitation. Tricuspid Valve Structurally normal tricuspid valve. Trace to mild tricuspid regurgitation. Unable to estimate the right ventricular systolic pressure. Pulmonic Valve Pulmonic valve not well visualized, grossly normal. Pericardium Minimal pericardial effusion (normal variant). Great Vessels Normal size aortic root. CONCLUSIONS Normal global left ventricular size, wall thickness, systolic function with no obvious regional wall motion abnormalities. Left ventricular ejection fraction is estimated at > 55 %. Normal right ventricular size and function. No mitral stenosis. Unable to estimate the right ventricular systolic pressure. Geovanny Jameson M.D. (Electronically Signed) Final Date: 15 Feb 2017 12:38 MEASUREMENTS (Male / Female) Normal Values 2D ECHO LV Diastolic Diameter PLAX 3.8 cm 4.2 - 5.9 / 3.9 - 5.3 cm LV Systolic Diameter PLAX 2.6 cm 2.1 - 4.0 cm LV Fractional Shortening PLAX 31.6 % 25 - 46 % LV Ejection Fraction 2D Teich 60.3 % IVS Diastolic Thickness 1.1 cm LVPW Diastolic Thickness 1.0 cm LV Relative Wall Thickness 0.6 RV Internal Dim ED PLAX 3.1 cm 1.9 - 3.8 cm LVOT Diameter 1.9 cm Aortic Root Diameter 2.8 cm LA Systolic Diameter LX 2.2 cm 3.0 - 4.0 / 2.7 - 3.8 cm Ascending Aorta Diameter 2.9 cm DOPPLER AV Peak Velocity 114.0 cm/s AV Peak Gradient 5.2 mmHg AV Mean Velocity 74.0 cm/s AV Mean Gradient 3.0 mmHg AV Velocity Time Integral 23.9 cm LVOT Peak Velocity 79.7 cm/s LVOT Peak Gradient 2.5 mmHg LVOT Mean Velocity 50.4 cm/s LVOT Mean Gradient 1.0 mmHg LVOT Velocity Time Integral 18.9 cm LVOT Stroke Volume 53.6 cm AV Area Cont Eq vti 2.2 cm AV Area Cont Eq pk 2.0 cm MV Peak Velocity 77.4 cm/s MV Peak Gradient 2.4 mmHg MV Mean Velocity 43.2 cm/s MV Mean Gradient 0.9 mmHg Mitral E Point Velocity 55.3 cm/s Mitral A Point Velocity 65.2 cm/s Mitral E to A Ratio 0.8 MV PHT Velocity 65.1 cm/s MV Deceleration [place] 228.4 cm/s MV Pressure Half Time 85.6 ms MV Area PHT 2.6 cm MV Deceleration Time 338.0 ms TR Peak Velocity 263.0 cm/s TR Peak Gradient 27.7 mmHg Right Atrial Pressure 5.0 mmHg Pulmonary Artery Systolic Pressu 32.7 mmHg Right Ventricular Systolic Press 32.7 mmHg PV Peak Velocity 80.0 cm/s PV Peak Gradient 2.6 mmHg PV Mean Velocity 50.4 cm/s PV Mean Gradient 1.0 mmHg PV Velocity Time Integral 20.4 cm LV E' Lateral Velocity 7.9 cm/s Mitral E to LV E' Lateral Ratio 7.0 LV E' Septal Velocity 5.8 cm/s Mitral E to LV E' Septal Ratio 9.6
[2017-02-15] MEDS ORDERED: TOPROL XL25 M1 PO (15:16)
[2017-02-15] MEDS ORDERED: ELIQUIS5 M1 PO (15:16)
--- NOTE | 2017-02-15 15:23 | Patient Discharge Instructions ---
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 Please visit your [facility] physician within seven days of discharge. You are now taking blood thinner, so please maintain caution not to fall, or to return to emergency if you have excessive/continous bleeding. Please return to emergency if symptoms worsen. Diet Continue normal diet: Yes Recommended Diet: Heart Healthy Activity Full Activity/No Limits: No Activity Self Limited: Yes Acute Coronary Syndrome Inclusion Criteria At DC or during hospital stay patient has or had the following: ACS DIAGNOSIS No Discharge Core Measures Meds if any: Prescribed or Continued at Discharge Meds if any: NOT Prescribed or Continued at Discharge Congestive Heart Failure Inclusion Criteria At DC or during hospital stay patient has or had the following: CHF DIAGNOSIS No Discharge Core Measures Meds if any: Prescribed or Continued at Discharge Meds if any: NOT Prescribed or Continued at Discharge Cerebrovascular accident Inclusion Criteria At DC or during hospital stay patient has or had the following: CVA/TIA Diagnosis No Discharge Core Measures Meds if any: Prescribed or Continued at Discharge Meds if any: NOT Prescribed or Continued at Discharge Venous thromboembolism Inclusion Criteria VTE Diagnosis No VTE Type NONE VTE Confirmed by (Test) NONE Discharge Core Measures - Per Current guidelines, there needs to be overlap - treatment for the first 5 days of Warfarin therapy. - If discharged on Warfarin prior to 5 days of - overlap therapy, the patient will need to be - assessed for post discharge needs including - *Post discharge parental anticoagulation - *Warfarin and/or parental anticoagulation education - *Follow up date to check INR post discharge At least 5 days overlap therapy as Inpatient No Meds if any: Prescribed or Continued at Discharge Note: Overlap Therapy is Warfarin and Anticoagulant Meds if any: NOT Prescribed or Continued at Discharge
[2017-02-15 16:35] VITALS: BP 118/70
[2017-02-15 16:40] VITALS: BP 118/70
--- NOTE | 2017-02-15 18:22 | Event Note ---
Event Note Event Note: 71-year-old female with past medical history of coronary artery disease status post stenting in 2007, was admitted via the emergency department with diagnosis of new onset paroxysmal atrial fibrillation. She was admitted as an observation patient overnight in the telemetry floor, and was in and out of atrial fibrillation during the course of stay today. Green Prize Packer Geovanny Jameson MD follow the patient, and suggested to place her on metoprolol, continue Eliquis, aspirin and statin and discharge the patient today. She is supposed to follow-up with groundskeeper supervisor within 7 days of discharge, and follow-up with her primary care physician within 7-10 days of discharge. She has been explained about signs/symptoms to return to emergency, that is, chest pain, shortness of breath, dizziness, worsening of symptoms.
--- NOTE | 2017-02-15 22:18 | PN- Att Addend ---
Attending Addendum Attending Brief Note S: The patient had no c/o at the time of my exam and was in NSR. O: Vital Signs Date Time Temp Pulse Resp B/P B/P Pulse O2 O2 Flow FiO2 Mean Ox Delivery Rate 02/15 1640 74 118/70 05/ 1635 98.8 74 16 118/70 96 Room Air 05/ 0823 98.2 65 14 120/70 97 Room Air 02/15 0230 97.9 63 18 158/80 98 Room Air 02/14 2247 96.6 61 18 150/90 97 Room Air Intake & Output 02/15 1600 02/15 0800 05 0000 Intake Total 600 Output Total 600 Balance 0 Intake, Oral 600 Output, Urine 600 Patient 140 lb 140 lb Weight Weight Reported by Patient Measurement Method Current Medications Sig/Meena Start time Last Medication Dose Route Stop Time Status Admin Acetaminophen 650 MG Q6P PRN 02/15 0145 DCD PO Apixaban 5 MG BID 02/15 1000 DCD 02/15 PO 1153 Apixaban 5 MG ONCE ONE 02/15 0015 DC 02/15 PO 02/15 0016 0029 Aspirin Buffered 81 MG DAILY 02/15 1000 DCD 05 PO 1153 Atorvastatin Calcium 10 MG DAILY 02/15 1000 DCD 02/15 PO 1153 Melatonin 3 MG ONCE ONE 02/15 0200 DC 02/15 PO 02/15 0201 0215 Metoprolol Succinate 25 MG DAILY 02/15 1500 DCD 05 PO 1640 Chest: clear Cor: RRR, nl S1, S2 w/o murm Abd: BS+, soft, NT, -HSM Ext: no edema/tenderness. Labs: Laboratory Tests 02/15/17 1205: Troponin I < 0.01 02/15/17 0621: Anion Gap 9, Estimated GFR > 60, BUN/Creatinine Ratio 25.7 H, Troponin I < 0.01 , TSH 5.120 H, Free T4 1.01, Total T3 1.13, CBC w Diff NO MAN DIFF REQ, RBC 4.37, MCV 89.9, MCH 30.3, RDW 13.1, MPV 7.3 L, Gran % 55.0, Lymphocytes % 34.2, Monocytes % 6.8, Eosinophils % 3.1, Basophils % 0.9, Absolute Granulocytes 3.2, Absolute Lymphocytes 2.0, Absolute Monocytes 0.4, Absolute Eosinophils 0.2, Absolute Basophils 0.1, PUBS MCHC 33.7 ECHO: CONCLUSIONS Normal global left ventricular size, wall thickness, systolic function with no obvious regional wall motion abnormalities. Left ventricular ejection fraction is estimated at > 55 %. Normal right ventricular size and function. No mitral stenosis. Unable to estimate the right ventricular systolic pressure. Impression/Plan: #Paroxysmal Atrial Fibrillation- remains in NSR at present. Cardiology input appreciated. Plan: Continue Metoprolol and Eliquis (had lengthy discussion with patient regarding use of this medication and case management obtained 1 month free and then $8/month cost to patient with a card). Patient to attempt to decrease caffeine intake (normally drinks 6+ cups of coffee daily). #Hyperlipidemia- on statin. Plan: Continue statin. #CAD- S/P prior ID, stent. Plan: Continue statin/ASA/Toprol/Eliquis. OK to discharge home per Dr. Jameson.
== END 2017-02-15 18:15 | disposition home health service (06) ==
LOC: ERH 20:31 → ERHI 23:17 → 1NO 23:17 → ENRESERV 23:49 → 1NO 02-15 00:38 → ENRESERV 02-15 00:41 → 1NO 02-15 01:16 → ENPENDDIS 02-15 16:47 → 1NO 02-15 18:15
PROVIDERS: Internal Medicine; Physician Assistant Medical; ADMIT Internal Medicine
DX: I48.0 Paroxysmal atrial fibrillation (principal); E78.5 Hyperlipidemia, unspecified; I25.10 Atherosclerotic heart disease of native coronary artery without angina pectoris; I21.3 ST elevation (STEMI) myocardial infarction of unspecified site; I34.1 Nonrheumatic mitral (valve) prolapse
CPT/HCPCS: 6020; 36415; 82436; 93005; 93010; 93306; G0378

== ENCOUNTER 2017-04-23 01:03 | Emergency (ER) | payer OTHER ==
[~2017-04-23] VITALS: Ht 165.1 cm; Wt 59.4 kg
[~2017-04-23 01:03] MED LIST: ASPIRIN EC81 M1 PO; ATORVASTATIN CA10 M1 PO; ELIQUIS5 M1 PO; MELOXICAM7.5 M1 PO; TOPROL XL25 M1 PO
--- NOTE | 2017-04-23 01:24 | ED SYNCOPE COMPLAINT ---
History of Present Illness General Chief Complaint: Syncope and Near-Syncope Stated Complaint: BIBA FOR NEAR SYNCOPE/NAUSEA Source: patient, family, EMS Exam Limitations: no limitations Vital Signs & Intake/Output Vital Signs & Intake/Output Vital Signs Date Time Temp Pulse Resp B/P B/P Pulse O2 O2 Flow FiO2 Mean Ox Delivery Rate 04/23 806 98.2 67 20 120/65 96 Room Air 04/23 0626 98.8 64 18 125/69 97 Room Air 04/23 0343 69 141/78 04/23 0342 98.0 69 18 141/78 95 Room Air 04/23 0116 98.9 62 18 133/74 98 Room Air Allergies Coded Allergies: diphenhydramine (HEART POUNDS 02/14/17) Reconcile Medications Apixaban (Eliquis) 5 MG TABLET 5 MG PO BID BLOOD THINNER Aspirin (Ecotrin*) 81 MG TABLET.DR 1 TAB PO DAILY HEART/BLOOD (Reported) Atorvastatin Calcium 10 MG TABLET 1 TAB PO DAILY CHOLESTEROL (Reported) Metoprolol Succ XL (Toprol XL) 25 MG TAB 25 MG PO DAILY ATRIAL FIBRILLATION Triage Nurses Notes Reviewed? yes Timing: single episode today Precipitating Factors: VOMITING, TOOK HER SLEEPING PILLS Loss of Consciousness: no loss of consciousness Associated Symptoms: COUGH, FATIGUE HPI: 71 year old female presents via EMS from home for chief complaint of lethargy, nodding off at home. Per family was treated with amoxicillin for bronchitis which she did not pick out hand yet. Chaz reports sore throat and vomiting today. Sore throat has been present since . Chaz denies cough, fevers. Patient presents with similar symptoms a few months ago and was diagnosed with afib. Not currently on any anticoagulation. (OLGA GALICIA,TAYLA) Past History Medical History Any Pertinent Medical History? see below for history Cardiovascular: AFIB, CAD Surgical History Surgical History: hysterectomy, CAD s/p stenting Psychosocial History Services at Home None What is your primary language Sami Family History Hx Contributory? No (TAYLA ESPINOZA MD) Review of Systems Review of Systems Constitutional: Reports: malaise. Denies: chills, fever. EENTM: Reports: throat pain. Respiratory: Denies: cough, short of breath. Cardiovascular: Denies: chest pain, palpitations, peripheral edema. GI: Reports: nausea, vomiting. Genitourinary: Denies: discharge, dysuria. Musculoskeletal: Reports: no symptoms. Skin: Reports: no symptoms. Neurological/Psychological: Reports: weakness. Denies: confusion. All Other Systems: Reviewed and Negative (TAYLA ESPINOZA MD) Physical Exam Physical Exam General Appearance: alert, awake, mild distress, thin Head: atraumatic, normal appearance Eyes: Bilateral: normal appearance, PERRL. Ears, Nose, Throat: normal pharynx, hearing grossly normal Neck: normal inspection, supple, full range of motion Respiratory: normal breath sounds, no respiratory distress Cardiovascular: regular rate/rhythm Gastrointestinal: normal bowel sounds, soft, non-tender Back: normal inspection Cranial Nerves: PERRL Motor/Sensory: no motor/sensory deficits Core Measures ACS in differential dx? No CVA/TIA Diagnosis: No Severe Sepsis Present: No Septic Shock Present: No (TAYLA ESPINOZA MD) Progress Differential Diagnosis: PNEUMONIA, URI, BRONCHITIS, VAGAL EPISODE, DEHYDRATION, AURORA, AMI Plan of Care: Orders Procedure Date/time Status Heart Healthy Diet 04/23 B Active URINALYSIS 04/23 142 Complete MISTAKE 04/23 141 Active TROPONIN LEVEL 04/23 140 Complete PARTIAL THROMBOPLASTIN TIME 04/23 140 Complete PROTHROMBIN TIME 04/23 140 Complete LACTIC ACID 04/23 140 Complete COMPREHENSIVE METABOLIC PANEL 04/23 140 Complete CBC WITHOUT DIFFERENTIAL 04/23 140 Complete B-TYPE NATRIURETIC PEP (BNP) 04/23 140 Complete EKG 04/23 117 Active Laboratory Tests 04/23/17 0440: Lactic Acid Cancelled 04/23/17 0312: Urine Color YEL, Urine Clarity CLEAR, Urine pH 7.0, Ur Specific [place] <= 1.005 , Urine Protein NEG, Urine Ketones NEG, Urine Nitrite NEG, Urine Bilirubin NEG, Urine Urobilinogen 0.2, Ur Leukocyte Esterase NEG, Ur Microscopic EXAM NOT REQUIRED, Urine Hemoglobin NEG, Urine Glucose NEG 04/23/17 0204: Anion Gap 10, Estimated GFR > 60, BUN/Creatinine Ratio 21.4, Glucose 107 H, Lactic Acid 1.5, Calcium 8.9, Total Bilirubin 0.7, AST 26, ALT 35, Alkaline Phosphatase 65, Troponin I < 0.01, Unb-N-Uslqjfhysby Pept 330 H, Total Protein 5.9 L, Albumin 3.4 L, Globulin 2.5, Albumin/Globulin Ratio 1.4, PT 12.4, INR 1.18, APTT 31, CBC w Diff NO MAN DIFF REQ, RBC 4.01 L, MCV 88.7, MCH 29.8, RDW 12.6, MPV 6.9 L, Gran % 74.6, Lymphocytes % 14.9 L, Monocytes % 8.3, Eosinophils % 1.3, Basophils % 0.9, Absolute Granulocytes 8.2 H, Absolute Lymphocytes 1.6, Absolute Monocytes 0.9 H, Absolute Eosinophils 0.1, Absolute Basophils 0.1, PUBS MCHC 33.6 Diagnostic Imaging: Viewed by Me: Radiology Read. Discussed w/RAD: Radiology Read. CXR Impression: PATIENT: FLOR YOO PRESENT AGE: 71 PATIENT ACCOUNT NO: [id number] : 47 LOCATION: [facility] ORDERING PHYSICIAN: TAYLA ESPINOZA MD SERVICE DATE: 04/23/17 EXAM TYPE: RAD - XRY-PORTABLE CHEST XRAY EXAMINATION: XR PORTABLE CHEST CLINICAL INFORMATION: Cough, sore throat COMPARISON: 02/13/2017 TECHNIQUE: Portable frontal view of the chest was obtained. FINDINGS: The lungs are well expanded. Streaky retrocardiac opacity. No edema or effusion. No pneumothorax. The cardiomediastinal silhouette is within normal limits. No acute osseous abnormality. IMPRESSION: Streaky retrocardiac opacity could represent atelectasis or pneumonia. DICTATED BY: JAYJAY MOSS MD DATE/TIME DICTATED:04/23/17237 [employer] SYSTEM CREWMEMBER: ADRIANNA DATE/TIME TRANSCRIBED:04/23/17237 CONFIDENTIAL, DO NOT COPY WITHOUT APPROPRIATE AUTHORIZATION. <Electronically signed in Other Vendor System> SIGNED BY: JAYJAY MOSS MD 04/23/17 0244 Initial ED EKG: NSR, LOW VOLTAKE, INFERIOR T WAVE INVERSIONS Hand-Off Endorsed To: JAMES ESCOTO MD Endorsed Time: 718 Pending: other (REEVALUATION) (OLGA GALICIA,TAYLA) Departure Departure Disposition: HOME OR SELF CARE Condition: Stable Clinical Impression Primary Impression: Pneumonia Referrals: JUAN BARDALES MD (PCP/Family) Additional Instructions: Please pick out hand your prescription that was sent to the pharmacy by your doctor. Drink plenty of fluids. Motrin or Tylenol as needed for fever or chills. Please return to the ER for any changing or worsening symptoms. Departure Forms: Customer Survey General Discharge Information (OLGA GALICIA,TAYLA)
[2017-04-23 02:14] LABS: ABSOLUTE BASOPHIL COUNT 0.1 /CUMM (0.0-0.2); ABSOLUTE EOSINOPHIL COUNT 0.1 /CUMM (0.0-0.7); ABSOLUTE GRANULOCYTE CT 8.2 /CUMM (1.4-6.5); ABSOLUTE LYMPH COUNT 1.6 /CUMM (1.2-3.4); ABSOLUTE MONOCYTE COUNT 0.9 /CUMM (0.10-0.60); BASOPHIL % 0.9 % (0.0-2.0); EOSINOPHIL % 1.3 % (0-5); GRANULOCYTE % 74.6 % (42.2-75.2); HEMATOCRIT 35.5 % (37-47); MEAN CORPUSCULAR HGB 29.8 PG (27.0-31.0); MEAN CORPUSCULAR HGB CONC 33.6 G/DL (33.0-37.0); MEAN CORPUSCULAR VOLUME 88.7 FL (81.0-99.0); MEAN PLATELET VOLUME 6.9 FL (7.4-10.4); PLATELET COUNT 199 /CUMM (130-400); RBC DISTRIBUTION WIDTH 12.6 % (11.5-14.5); RED BLOOD CELL CT 4.01 /CUMM (4.20-5.40)
[2017-04-23 02:26] LABS: PT 12.4 SEC (9.4-12.5); PTT 31 SEC (25-37)
--- NOTE | 2017-04-23 02:44 | RADIOLOGY REPORT ---
EXAMINATION: XR PORTABLE CHEST CLINICAL INFORMATION: Cough, sore throat COMPARISON: 02/13/2017 TECHNIQUE: Portable frontal view of the chest was obtained. FINDINGS: The lungs are well expanded. Streaky retrocardiac opacity. No edema or effusion. No pneumothorax. The cardiomediastinal silhouette is within normal limits. No acute osseous abnormality. IMPRESSION: Streaky retrocardiac opacity could represent atelectasis or pneumonia.
[2017-04-23 08:06] VITALS: BP 120/65
== END 2017-04-23 08:52 ==
LOC: ERH 01:03
PROVIDERS: Emergency Medicine
DX: J18.9 Pneumonia, unspecified organism (principal)
CPT/HCPCS: 81003; 93005; 93010

== ENCOUNTER 2018-04-17 11:18 | Emergency (ER) | payer OTHER ==
--- NOTE | 2018-04-17 13:19 | CT SCAN REPORT ---
EXAMINATION: CT HEAD AND CERVICAL SPINE CLINICAL INFORMATION: Fall. Head trauma. On Eliquis. COMPARISON: No relevant prior imaging. TECHNIQUE: Sales Representative Publications images were obtained. CT acquisition of the head and cervical spine was performed without intravenous administration of contrast. Data was reformatted into multiplanar images at the acquisition workstation. DLP: 905.68 mGy-cm. FINDINGS: Head: There is focal swelling of the left parietal scalp. The underlying calvarium is intact. No acute intracranial hemorrhage or abnormal extra-axial collection. No intracranial mass effect or midline shift. Lateral and third ventricles are normal. No hydrocephalus. Fernandes-white matter differentiation is grossly preserved and there is no evidence of acute territorial infarct. The skull base is intact. Mastoid air cells and middle ear cavities are well-aerated. Visualized paranasal sinuses are well aerated. Cervical spine: There is slight anterolisthesis of C4 on C5 that appears to be related to facet degenerative changes at this level. Alignment is otherwise normal. Vertebral heights are preserved. No acute fracture. No abnormal prevertebral soft tissue swelling. There is severe degenerative arthrosis of the atlantodental joint with spurring at the superior margin of the anterior C1 arch and at the odontoid tip. Slight loss of intervertebral disc height at multiple levels within the cervical spine. Grossly no evidence of canal compromise. Varying degrees of neuroforaminal encroachment uncovertebral joint spurring. For instance there is moderate to severe left neuroforaminal encroachment at C3-C4. Soft tissues of the neck including the thyroid gland are unremarkable. IMPRESSION: There is mild swelling of the left parietal scalp. No acute intracranial hemorrhage. There is multilevel degenerative spondylosis of the cervical spine. No acute cervical spine fracture.
--- NOTE | 2018-04-17 13:45 | ED MVC/FALL/TRAUMA COMPLAINT ---
History of Present Illness General Chief Complaint: Laceration Procedure Stated Complaint: LAC TO HEAD S/P FALL Source: patient Exam Limitations: no limitations Vital Signs & Intake/Output Vital Signs & Intake/Output Vital Signs Date Time Temp Pulse Resp B/P B/P Pulse O2 O2 Flow FiO2 Mean Ox Delivery Rate 04/17 1524 98.0 49 18 134/72 100 Room Air 04/17 1348 97.4 51 18 132/70 99 Room Air Allergies Coded Allergies: diphenhydramine (HEART POUNDS 02/14/17) Reconcile Medications Apixaban (Eliquis) 5 MG TABLET 5 MG PO BID BLOOD THINNER Aspirin (Ecotrin*) 81 MG TABLET.DR 1 TAB PO DAILY HEART/BLOOD (Reported) Atorvastatin Calcium 10 MG TABLET 1 TAB PO DAILY CHOLESTEROL (Reported) Metoprolol Succ XL (Toprol XL) 25 MG TAB 25 MG PO DAILY ATRIAL FIBRILLATION Tylenol With Codeine (Tylenol With Codeine #3 Tablet) 300 MG-30 MG TABLET 1 TAB PO BIDP PRN PAIN Triage Note: PT TO ED S/P FALL AND HIT TOP OF HEAD. DENIES ANY LOC. NOTED HEMATOMA TO TOP OF HER HEAD. UNKNOWN LAST TETANUS SHOT. DENIES ANY VISUAL CHANGES. SLIGHT NECK DISCOMFORT BUT REPORTS THAT SHE ALWAYS DOES. SANCHEZ JAY IN TRIAGE. DSG APPLIED IN TRIAGE Triage Nurses Notes Reviewed? yes Onset: Abrupt Duration: constant Timing: single episode today Severity: moderate Severity Numbers: 5 Method of Injury: direct blow, fall Loss of Consciousness: no loss of consciousness HPI: Patient is a 72-year-old female who presents emergency room stating that today she was in her normal state of health however while opening her outside door of her home the cat ran out in which she bent over however fell forward striking the posterior aspect of her head to the floor resulting acute onset of a laceration and bleeding. Patient denies any preceding episode a lightheaded sensation or dizziness. Patient is complaining of generalized neck pain after the event. Patient was able to get up on her own tetanus is unknown. Patient currently IS ON ELIQUIS (Rajiv Anderson) Past History Travel History Traveled to [place] past 21 day No Medical History Any Pertinent Medical History? see below for history Neurological: NONE EENT: NONE Cardiovascular: AFIB, CAD Respiratory: bronchitis Gastrointestinal: NONE Hepatic: NONE Renal: NONE Musculoskeletal: NONE Psychiatric: NONE Endocrine: NONE Blood Disorders: NONE Cancer(s): NONE Tetanus Vaccine: 04/17/18 Surgical History Surgical History: hysterectomy, CAD s/p stenting Psychosocial History Services at Home None What is your primary language Belgian Family History Hx Contributory? No (Rajiv Anderson) Review of Systems Review of Systems Constitutional: Reports: no symptoms. Eyes: Reports: no symptoms. Ears, Nose, Throat, Mouth: Reports: no symptoms. Respiratory: Reports: no symptoms. Cardiovascular: Reports: no symptoms. Gastrointestinal/Abdominal: Reports: no symptoms. Genitourinary: Reports: no symptoms. Musculoskeletal: Reports: see HPI. Skin: Reports: see HPI. Neurological/Psychological: Reports: see HPI. All Other Systems: Reviewed and Negative (Rajiv Andersno) Physical Exam Physical Exam General Appearance: no apparent distress, alert, comfortable Head: evidence of injury Eyes: Bilateral: normal appearance, PERRL, EOMI. Ears, Nose, Throat, Mouth: hearing grossly normal, moist mucous membrane, Tympanic normal Neck: paraspinous muscle tender, spinous processes tender Respiratory: normal breath sounds, chest non-tender Cardiovascular: regular rate/rhythm Gastrointestinal: normal bowel sounds, soft, non-tender Extremities: normal range of motion Neurologic/Psych: no motor/sensory deficits, awake, alert, oriented x 3, normal gait, normal mood/affect, director clinical applications II-XII nml as tested Diagram Head: 1) Noted hematoma and 1.5 cm linear subcutaneous scalp laceration with noted dry blood no active bleeding Core Measures ACS in differential dx? No CVA/TIA Diagnosis No Sepsis Present: No Sepsis Focused Exam Completed? No (Rajiv Anderson) Progress Differential Diagnosis: abd injury, C/T/L spine injury, ext injury, ICH, pelvis injury, pnemothorax, spinal cord injury Plan of Care: Current Medications Sig/Meena Start time Last Medication Dose Stop Time Status Admin Ondansetron HCl 4 MG ONCE ONE 04/17 1515 UNVr 04/17 (Zofran) 04/[address] scan was resulted no signs of fracture or ICH. The laceration site was irrigated with peroxide water and Betadine Then I used Cetacaine for local anesthesia that I placed #4 angela margins were revised bacitracin was applied Patient felt mildly nauseous afterwards was given Zofran Nausea resolved prior to discharge patient requested to leave the emergency room after angela were placed Diagnostic Imaging: Viewed by Me: CT Scan. Radiology Impression: no acute abnormality, no fracture Comments: PATIENT: FLOR YOO PRESENT AGE: 72 PATIENT ACCOUNT NO: [id number] : 47 LOCATION: [facility] ORDERING PHYSICIAN: Rajiv BRADFORD SERVICE DATE: 04/17/18 EXAM TYPE: CAT - CT CERV SPINE WO IV CONTRAST; CT HEAD WO IV CONTRAST EXAMINATION: CT HEAD AND CERVICAL SPINE CLINICAL INFORMATION: Fall. Head trauma. On Eliquis. COMPARISON: No relevant prior imaging. TECHNIQUE: Mutuel Clerk images were obtained. CT acquisition of the head and cervical spine was performed without intravenous administration of contrast. Data was reformatted into multiplanar images at the acquisition workstation. DLP: 905.68 mGy-cm. FINDINGS: Head: There is focal swelling of the left parietal scalp. The underlying calvarium is intact. No acute intracranial hemorrhage or abnormal extra-axial collection. No intracranial mass effect or midline shift. Lateral and third ventricles are normal. No hydrocephalus. Fernandes-white matter differentiation is grossly preserved and there is no evidence of acute territorial infarct. The skull base is intact. Mastoid air cells and middle ear cavities are well-aerated. Visualized paranasal sinuses are well aerated. Cervical spine: There is slight anterolisthesis of C4 on C5 that appears to be related to facet degenerative changes at this level. Alignment is otherwise normal. Vertebral heights are preserved. No acute fracture. No abnormal prevertebral soft tissue swelling. There is severe degenerative arthrosis of the atlantodental joint with spurring at the superior margin of the anterior C1 arch and at the odontoid tip. Slight loss of intervertebral disc height at multiple levels within the cervical spine. Grossly no evidence of canal compromise. Varying degrees of neuroforaminal encroachment uncovertebral joint spurring. For instance there is moderate to severe left neuroforaminal encroachment at C3-C4. Soft tissues of the neck including the thyroid gland are unremarkable. IMPRESSION: There is mild swelling of the left parietal scalp. No acute intracranial hemorrhage. There is multilevel degenerative spondylosis of the cervical spine. No acute cervical spine fracture. DICTATED BY: Mason GALICIA,Tom Anderson DATE/TIME DICTATED:04/17/181311 DENTAL LABORATORY ASSISTANT:ADRIANNA DATE/TIME TRANSCRIBED:04/17/181311 (Uma BRADFORD,Rajiv) Departure Departure Disposition: HOME OR SELF CARE Condition: Stable Clinical Impression Primary Impression: Scalp laceration Secondary Impressions: Fall, Minor head injury Referrals: Halle GALICIA,Josse Ward (PCP/Family) Additional Instructions: As discussed apply bacitracin to the wound once a day for the following 4 days in the area open to improve healing. If you note signs infection or developing new concerning symptom return to emergency room follow-up with your doctor or return to emergency room in 7 days for staple removal Begin the prescription Tylenol codeine for pain, prescriptions waiting at [facility] Departure Forms: Customer Survey General Discharge Information Prescriptions: Current Visit Scripts Tylenol With Codeine (Tylenol With Codeine #3 Tablet) 1 TAB PO BIDP PRN PAIN #6 TAB (Rajiv Anderson) PA/CLEAT LAYER Co-Sign Statement Statement: ED Attending supervision documentation- [X] I saw and evaluated the patient. I have also reviewed all the pertinent lab results and diagnostic results. I agree with the findings and the plan of care as documented in the PA's/CLEAT LAYER's documentation. Patient presents for evaluation of injury sustained status post fall. Physical examination reveals a laceration to the occipital region of the head. Neurologic examination is nonfocal. [] I have reviewed the ED Record and agree with the PA's/CLEAT LAYER's documentation. [] Additions or exceptions (if any) to the PAs/CLEAT LAYER's note and plan are summarized below: [] (Naa GALICIA,Jae Gee)
[2018-04-17] MEDS ORDERED: TYLENOL WITH C1 EACH PO (15:25)
[2018-04-17 15:44] VITALS: BP 159/73
== END 2018-04-17 15:44 ==
LOC: ERH 11:18
DX: S01.01XA Laceration without foreign body of scalp, initial encounter (principal); S09.90XA Unspecified injury of head, initial encounter; W19.XXXA Unspecified fall, initial encounter; Y93.89 Activity, other specified; Y92.009 Unspecified place in unspecified non-institutional (private) residence as the place of occurrence of the external cause
CPT/HCPCS: 90471; 90714; J3101